=== PATIENT | female | born 1975 | race Caucasian/White ===

== ENCOUNTER → 2017-12-21 17:55 | Outpatient (CLI) | payer BC, SELFPAY ==
[2017-12-22 00:46] LABS: Group B Strep DNA By PCR Negative (Negative); Internal Control PASS; Probe Check PASS; Specimen Processing Control PASS
== END ==
PROVIDERS: Visit Provider Obstetrics & Gynecology
DX: O09.90 Supervision of high risk pregnancy, unspecified, unspecified trimester (principal); Z3A.00 Weeks of gestation of pregnancy not specified
CPT/HCPCS: 87081; 87653

== ENCOUNTER 2017-12-28 11:35 | Outpatient (CLI) | payer BC, SELFPAY ==
[2017-12-28 11:57] VITALS: BMI 22.6
--- NOTE | 2017-12-29 23:05 | OB.TRI.NOTE ---
- Problem List (1) Variable heart rate decelerations, antepartum Status: Acute History of Present Illness Reason For Visit: MONITORING History of Present Illness: variable in the office, sent down for extended monitoring Allergies No Known Allergies Allergy (Verified 12/28/17 11:59) - Pertinent Past Medical History Medical History: Past Medical History (Last Reviewed 12/28/17 @ 10:57 by Lanie Lim) History of anorexia nervosa Surgical History: Past Surgical History (Last Reviewed 12/28/17 @ 10:57 by Lanie Lim) H/O dilation and curettage NST - FHR Rate Baby A Baseline: 130-140 Variability:: Moderate Accelerations:: 15 x 15 Decelerations:: None NST Reactive:: Yes FHR Category:: Category I Uterine Activity:: no regular Impression/Plan reactive nst no decels, reassuring
== END 2017-12-28 13:05 | disposition home or self-care (01) ==
LOC: WPOUT 11:39 → WP 11:40
PROVIDERS: Visit Provider Obstetrics & Gynecology
DX: O76 Abnormality in fetal heart rate and rhythm complicating labor and delivery (principal); Z3A.00 Weeks of gestation of pregnancy not specified
CPT/HCPCS: 59025; 59050; 99218; G0378

== ENCOUNTER 2018-01-04 11:40 | Outpatient (CLI) | payer BC, SELFPAY ==
[2018-01-04 11:56] VITALS: BMI 21.8
--- NOTE | 2018-01-04 13:06 | US_ITS ---
STUDY: SECOND AND THIRD TRIMESTER OBSTETRICAL ULTRASOUND - LIMITED REASON FOR EXAM: Female, 42 years old. position and amniotic fluid index determination. LMP: January 15, 2018. PRIOR ULTRASOUND: None. TECHNIQUE: Transabdominal ultrasound evaluation was performed. FINDINGS: There is a single intrauterine fetus. The fetus is in a cephalic presentation. There is demonstrated cardiac activity with a heart rate of 119 bpm. There is a normal amniotic fluid volume. The largest amniotic fluid pocket measures 12.1 cm x 8.2 cm. The amniotic fluid index (JANA) is 33.07 cm. The placenta is anterior and low lying but not previa in location. There are Grade 2 placental changes. Age by LMP: 38 weeks, 3 days. YARITZA by LMP: January 15, 2018. US/OB Limited (No Biometrics) IMPRESSION: Amniotic fluid is normal. There is a cephalic presentation. Electronically Signed: Christoph Garvey MD at 15:05 EDT Tel [phone], Service support ,
--- NOTE | 2018-01-07 02:47 | OB.TRI.NOTE ---
History of Present Illness Date of Service: 01/04/18 Was patient seen by the physician?: Yes Reason For Visit: MONITORING Allergies No Known Allergies Allergy (Verified 01/04/18 11:03) - Pertinent Past Medical History Medical History: Past Medical History (Last Reviewed 01/04/18 @ 11:03 by Lanie Lim) History of anorexia nervosa Surgical History: Past Surgical History (Last Reviewed 01/04/18 @ 11:03 by Lanie Lim) H/O dilation and curettage NST - FHR Rate Baby A Baseline: 120 Variability:: Moderate Accelerations:: 15 x 15 Decelerations:: None NST Reactive:: Yes FHR Category:: Category I Uterine Activity:: irregular Impression/Plan reassuring FHT still poly on US. extended monitoring reassuring dc home kick counts
== END 2018-01-04 15:45 | disposition home or self-care (01) ==
LOC: WPOUT 11:54 → WP 11:55
PROVIDERS: Visit Provider Obstetrics & Gynecology
DX: Z34.90 Encounter for supervision of normal pregnancy, unspecified, unspecified trimester (principal)
CPT/HCPCS: 59025; 59050; 76815; 99218; G0378

== ENCOUNTER 2018-01-06 13:05 | Inpatient (IN) | payer BC, SELFPAY ==
[2018-01-06] MEDS: 0.9% Saline Lock 10 ML Syringe IV (13:30)
[2018-01-06 13:31] VITALS: BMI 21.6
[2018-01-06] MEDS: Oxytocin 30 units/NS 500 ml 30 UNITS/500 ML IV.SOLN 334 UNITS IV (13:40)
[2018-01-06] MEDS: Oxytocin 30 units/NS 500 ml 30 UNITS/500 ML IV.SOLN 167 UNITS IV (14:10)
[2018-01-06 14:14] LABS: Hematocrit 39.8 % (37-47); Hemoglobin 13.8 g/dl (12.0-15.0); Mean Corp Hgb Conc 34.7 g/gl (32-36); Mean Corpuscular Hgb 31.4 pg (27.0-32.0); Mean Corpuscular Volume 90.7 fL (81-99); Mean Platelet Vol. 10.3 fl (6.2-12.0); Platelet Count 190 K/mm3 (150-450); RBC Distribution Width CV 12.8 % (11.6-14.6); RBC Distribution Width SD 41.9 fl (35.1-43.9); Red Blood Count 4.39 M/mm3 (4.2-5.4); White Blood Count 8.2 K/mm3 (4.4-11.0)
[2018-01-06 14:15] LABS: Scan Indicated on CBC? Y/N NO
[2018-01-06 20:15] VITALS: BP 108/66; PULSE 64; RESP 16; TEMP 36.6; O2SAT 96
[2018-01-06 20:36] LABS: Bedside Glucose 97 mg/dL (70-110)
[2018-01-06] MEDS: Acetaminophen 325 MG Tablet PO (20:47)
--- NOTE | 2018-01-06 21:04 | PCM.HP.OB ---
History Date of Admission: 01/06/18 Final YARITZA: 01/15/18 Gestational age: 38 Weeks and 5 Days History of this : This is a 42 year-old, at 38 weeks gestational age presents and delivers precipitously Medical History: Medical History (Last Reviewed 01/04/18 @ 11:03 by Lanie Lim) History of anorexia nervosa Z86.59 Surgical History: Surgical History (Last Reviewed 01/04/18 @ 11:03 by Lanie Lim) H/O dilation and curettage Z98.890 Allergies No Known Allergies Allergy (Verified 01/04/18 11:03) Home Medications: Home Medications cholecalciferol (vitamin D3) 2,000 unit capsule 2,000 unit PO QDAY 12/01/17 vitamin,calcium,gtpheuyi-gbjg-seszd acid tablet 1 tab PO QDAY 12/01/17 Smoking Status: Former smoker Alcohol: None Number of Fetus(es): 1 Heart Tracin-130 History Past Pregnancies: Past Pregnancies Pregancy History 7 Elective abortions Hx Para 3 Spontaneous abortions Hx # Term Pregnancies Ectopic pregnancies Hx # Pregnancies Multiple births # of living children Past Pregnancies Del. Date Name GA/Weeks Outcome Route Bth Weight Gen Labor Lgth Anesthesia Del [facility] Provider FOB Unknown 2010 Puneet live - full term [place] Unknown 2012 Sebastian live - full term Delivered at Home in the bathroom Unknown 2014 [facility] live - full term Adriana Expected Infant Delivery Method: Spontaneous Vaginal Review of Systems Constitutional: Denies: Fever, Malaise Eyes: Denies: Blurred vision, Vision Change HEENT: Denies: Head Aches, Visual Changes Cardiovascular: Denies: Chest Pain, Palpitations Respiratory: Denies: Cough, Shortness of Breath, Wheezing Gastrointestinal: Denies: Abdominal Pain, Diarrhea, Nausea, Vomiting Genitourinary: Denies: Dysuria, Hematuria Musculoskeletal: Denies: Joint Pain, Muscle pain Skin: Denies: Lesions, Rash Neurological: Denies: Blurred vision, Focal weakness, Headaches Psychiatric: Denies: Anxiety, Depression Endocrine: Denies: Heat/ Cold Intolerance Hematologic/ Lymphatic: Denies: Easy Bruising, Easy Bleeding Physical Exam General: Alert, Cooperative, No apparent distress HEENT: Atraumatic, Normocephalic. Negative for: Thyromegaly, Lymphadenopathy Cardiovascular: Regular rate Lungs: Normal air movement Abdomen: Soft, Non Tender, Gravid Neurological: Deep Tendon Reflexes 2+/4 and Symmetrical, Neuro grossly intact. 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 Negative for: Vulvar lesions Estimated gestational size: Appropriate for gestational size Presentation: Cephalic Assessment/Plan All Active Problems (Last Reviewed 01/04/18 @ 11:03 by Lanie Lim) Variable heart rate decelerations, antepartum (Acute) AMA (advanced maternal age) multigravida 35+ (Acute) Supervision of high-risk (Acute) This is a 42 year-old, at 38 weeks gestational age with polyhydramnios and gdma1 precipitous delivery
--- NOTE | 2018-01-06 21:07 | HP.PCM_ITS ---
History Date of Admission: 01/06/18 Final YARITZA: 01/15/18 Gestational age: 38 Weeks and 5 Days History of this : This is a 42 year-old, at 38 weeks gestational age presents and delivers precipitously Medical History: Medical History (Last Reviewed 01/04/18 @ 11:03 by Lanie Lim) History of anorexia nervosa Z86.59 Surgical History: Surgical History (Last Reviewed 01/04/18 @ 11:03 by Lanie Lim) H/O dilation and curettage Z98.890 Allergies No Known Allergies Allergy (Verified 01/04/18 11:03) Home Medications: Home Medications cholecalciferol (vitamin D3) 2,000 unit capsule 2,000 unit PO QDAY 12/01/17 vitamin,calcium,cgqkwulv-jyet-pqrmb acid tablet 1 tab PO QDAY 12/01/17 Smoking Status: Former smoker Alcohol: None Number of Fetus(es): 1 Heart Tracin-130 History Past Pregnancies: Past Pregnancies Pregancy History 7 Elective abortions Hx Para 3 Spontaneous abortions Hx # Term Pregnancies Ectopic pregnancies Hx # Pregnancies Multiple births # of living children Past Pregnancies Del. Date Name GA/Weeks Outcome Route Bth Weight Gen Labor Lgth Anesthesia Del [facility] Provider FOB Unknown 2010 Puneet live - full term [place] Unknown 2012 Sebastian live - full term Delivered at Home in the bathroom Unknown 2014 [facility] live - full term Adriana Expected Infant Delivery Method: Spontaneous Vaginal Review of Systems Constitutional: Denies: Fever, Malaise Eyes: Denies: Blurred vision, Vision Change HEENT: Denies: Head Aches, Visual Changes Cardiovascular: Denies: Chest Pain, Palpitations Respiratory: Denies: Cough, Shortness of Breath, Wheezing Gastrointestinal: Denies: Abdominal Pain, Diarrhea, Nausea, Vomiting Genitourinary: Denies: Dysuria, Hematuria Musculoskeletal: Denies: Joint Pain, Muscle pain Skin: Denies: Lesions, Rash Neurological: Denies: Blurred vision, Focal weakness, Headaches Psychiatric: Denies: Anxiety, Depression Endocrine: Denies: Heat/ Cold Intolerance Hematologic/ Lymphatic: Denies: Easy Bruising, Easy Bleeding Physical Exam General: Alert, Cooperative, No apparent distress HEENT: Atraumatic, Normocephalic. Negative for: Thyromegaly, Lymphadenopathy Cardiovascular: Regular rate Lungs: Normal air movement Abdomen: Soft, Non Tender, Gravid Neurological: Deep Tendon Reflexes 2+/4 and Symmetrical, Neuro grossly intact. 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 Negative for: Vulvar lesions Estimated gestational size: Appropriate for gestational size Presentation: Cephalic Assessment/Plan All Active Problems (Last Reviewed 01/04/18 @ 11:03 by Lanie Lim) Variable heart rate decelerations, antepartum (Acute) AMA (advanced maternal age) multigravida 35+ (Acute) Supervision of high-risk (Acute) This is a 42 year-old, at 38 weeks gestational age with polyhydramnios and gdma1 precipitous delivery
[2018-01-07 00:45] VITALS: BP 103/64; PULSE 63; RESP 18; TEMP 36.8; O2SAT 94
--- NOTE | 2018-01-07 02:24 | OP.PCM_ITS ---
- Problem List (1) Precipitous delivery Status: Acute (2) Variable heart rate decelerations, antepartum Status: Acute (3) AMA (advanced maternal age) multigravida 35+ Status: Acute Qualifiers: Trimester: third trimester Qualified Code(s): O09.523 - Supervision of elderly multigravida, third trimester Comment: growth us 3rd trimester and weekly nst 36 weeks on, normal NIPT screening Serial growth US every 4 weeks, antnenatal testing weekly and daily kick counts (4) Supervision of high-risk Status: Acute Qualifiers: Trimester: third trimester Qualified Code(s): O09.93 - Supervision of high risk , unspecified, third trimester Comment: PRR PC Sebastian Teixeira Cambriana Danny ROLY [facility] Vaginal Delivery Maternal Presentation: Active Labor 42-year-old presented at 38 weeks 5 days and delivered precipitously Amniotic Membrane Rupture Type: Spontaneous at home Amniotic Fluid Description: Clear Final YARITZA: 01/15/18 Gestational age: 38 Weeks and 6 Days Date of Procedure: 01/06/18 Pre-Operative Diagnosis: In active labor precipitous delivery Post-Operative Diagnosis: same Surgery/ Procedure Performed: Spontaneous Vaginal Delivery Type of Anesthesia: None Description of Procedure: Patient presented to labor and delivery and was checked by a nurse and was felt to only be 1-2 cm but was difficult to find the cervix. Patient went to the restroom and while she was in the restroom she felt the head starting to crown and therefore she was carried back into the bed by staff and her . At this time the head was and Dr. Pérez was nearby and called into the room due to her being on the floor and Dr. Parks had not been informed of her arrival or status yet. The head had delivered spontaneously and there was a very tight nuchal cord preventing delivery of the shoulders therefore it was clamped cut on the perineum and the anterior and posterior shoulders were delivered without complication per physician and nursing staff present. I arrived in the baby was being examined by pediatric health support specialist and I took over the patient's care and the placenta delivered spontaneously immediately following was noted to be intact and have a three-vessel cord. No lacerations were noted. EBL was 300 cc and the infant tolerated the delivery well Placental Delivery Description: Spontaneous Placenta Disposition: [facility] Cord Entanglement: Around neck x 1, tight Estimated Blood Loss: 200 A gender: Male Episiotomy Description: None Laceration: None Medications given after delivery: IV Pitocin Complications: None
[2018-01-07 04:45] VITALS: BP 114/78; PULSE 63; RESP 16; TEMP 36.6; O2SAT 97
[2018-01-07] MEDS: Acetaminophen 325 MG Tablet PO (05:54)
[2018-01-07 06:05] LABS: Bedside Glucose 79 mg/dL (70-110)
--- NOTE | 2018-01-07 08:15 | PCM.PN.OB ---
Patient Problems: Active and Suspected Problems (Last Reviewed 01/04/18 @ 11:03 by Lanie Lim) Precipitous delivery (Acute) Subjective: NO CP, SOB, nausea. Ambulating, voiding. Doing well. - Physical Exam General: Alert, Oriented x3 Abdomen: Soft, Non Tender, - - FF below U Vital Signs Temp Pulse Resp BP Pulse Ox 97.9 F 63 16 114/78 97 01/07/18 04:45 01/07/18 04:45 01/07/18 04:45 01/07/18 04:45 01/07/18 04:45 Oxygen Delivery Method Room Air Weight: 130 lb 2 oz Body Mass Index (BMI) 21.6 Intake and Output for Last 24 Hours 01/05/18 01/06/18 01/07/18 23:59 23:59 23:59 Output Total 200 / 200 Balance -200 / -200 Laboratory Tests Past 24 Hrs 01/06/18 01/06/18 13:30 13:30 WBC 8.2 RBC 4.39 Hgb 13.8 Hct 39.8 MCV 90.7 MCH 31.4 MCHC 34.7 RDW 12.8 RDW Differential 41.9 Plt Count 190 MPV 10.3 Blood Type O POSITIVE Antibody Screen NEGATIVE POC Glucose 01/07/18 01/06/18 06:00 20:06 POC Glucose 79 97 Medical Necessity - Tobacco Use Smoking Status: Former smoker Assessment/Plan All Active Problems (Last Reviewed 01/04/18 @ 11:03 by Lanie Lim) Variable heart rate decelerations, antepartum (Acute) Precipitous delivery (Acute) AMA (advanced maternal age) multigravida 35+ (Acute) Supervision of high-risk (Acute) PPD #1: Routine care, doing well, . Possibly home today.
[2018-01-07 08:30] VITALS: BP 103/74; PULSE 67; RESP 18; TEMP 36.7; O2SAT 97
[2018-01-07 12:30] VITALS: BP 101/65; PULSE 71; RESP 18; TEMP 37; O2SAT 97
[2018-01-07 15:30] VITALS: BP 98/62; PULSE 63; RESP 18; TEMP 36.8; O2SAT 96
[2018-01-07] MEDS: Ibuprofen 600 MG Tablet PO (15:34)
[2018-01-07 20:10] VITALS: BP 99/68; PULSE 84; RESP 16; TEMP 36.9
[2018-01-08 02:00] VITALS: BP 101/65; PULSE 78; RESP 18; TEMP 36.2
[2018-01-08] MEDS: Ibuprofen 600 MG Tablet PO (02:35)
[2018-01-08 08:00] VITALS: BP 120/80; PULSE 86; RESP 18; TEMP 36.6
--- NOTE | 2018-01-08 08:47 | PCM.DCVAG ---
Discharge Diet: No Restrictions Discharge Activity: Return to Normal Activity, May not drive while taking narcotic pain medications., May Shower May resume sexual activity in: 4-6 weeks Call your doctor if your incision/area has: Continuous Slow Oozing, Sudden Increased Bleeding, Increased Pain/ Swelling, Increased Redness, Foul Smelling Discharge Additional Instructions: If you experience any of the following, contact your healthcare provider. Bleeding that soaks a pad every hour for 2 hours Fever 100.4 or higher Unrelieved incision or abdominal pain Swelling, redness, discharge or bleeding from your incision or episiotomy site Your incision begins to separate Problems urinating (including inability to urinate or burning while urinating). Visual changes Severe headache Flu-like symptoms Pain or redness in one of both of your breasts Pain, warmth, tenderness or swelling in your legs, especially the calf area Frequent nausea and vomiting Symptoms of depression or anxiety If you experience any of the following, call 911 or go to the nearest Emergency Room. Chest pain Problems breathing Seizure activity Partial or complete paralysis of a body part, slurred speech, weakness or drooping of the face, or a sudden inability to walk or hold your balance Allergies/Adverse Reactions: Allergies No Known Allergies Allergy (Verified 01/04/18 11:03) Medications to take at Discharge cholecalciferol (vitamin D3) 2,000 unit capsule 2,000 unit PO QDAY 12/01/17 vitamin,calcium,ozaznehc-ocli-nbnaw acid tablet 1 tab PO QDAY 12/01/17 Please Follow Up With: Almita Parks MD - [phone] When: Call to make an appointment with your doctor in 6 weeks. If you had elevated Blood pressure or 4th degree laceration you will need to be seen in 2 weeks. Primary Care Physician: Care Physician,No Primary [Primary Care Provider] -
--- NOTE | 2018-01-08 08:48 | DCINST_ITS ---
Discharge Diet: No Restrictions Discharge Activity: Return to Normal Activity, May not drive while taking narcotic pain medications., May Shower May resume sexual activity in: 4-6 weeks Call your doctor if your incision/area has: Continuous Slow Oozing, Sudden Increased Bleeding, Increased Pain/ Swelling, Increased Redness, Foul Smelling Discharge Additional Instructions: If you experience any of the following, contact your healthcare provider. * Bleeding that soaks a pad every hour for 2 hours * Fever 100.4 or higher * Unrelieved incision or abdominal pain * Swelling, redness, discharge or bleeding from your incision or episiotomy site * Your incision begins to separate * Problems urinating (including inability to urinate or burning while urinating) . * Visual changes * Severe headache * Flu-like symptoms * Pain or redness in one of both of your breasts * Pain, warmth, tenderness or swelling in your legs, especially the calf area * Frequent nausea and vomiting * Symptoms of depression or anxiety If you experience any of the following, call 911 or go to the nearest Emergency Room. * Chest pain * Problems breathing * Seizure activity * Partial or complete paralysis of a body part, slurred speech, weakness or drooping of the face, or a sudden inability to walk or hold your balance Allergies/Adverse Reactions: Allergies No Known Allergies Allergy (Verified 01/04/18 11:03) Medications to take at Discharge cholecalciferol (vitamin D3) 2,000 unit capsule 2,000 unit PO QDAY 12/01/17 vitamin,calcium,zkxuxsrc-zucr-noyzt acid tablet 1 tab PO QDAY 12/01/17 Please Follow Up With: Almita Parks MD - [phone] When: Call to make an appointment with your doctor in 6 weeks. If you had elevated Blood pressure or 4th degree laceration you will need to be seen in 2 weeks. Primary Care Physician: Care Physician,No Primary [Primary Care Provider] -
[2018-01-08 10:00] VITALS: BP 120/80; PULSE 86; RESP 18; TEMP 36.6
== END 2018-01-08 09:05 | disposition home or self-care (01) | DRG 775 ==
PROVIDERS: Admitting Provider Obstetrics & Gynecology; Visit Provider Obstetrics & Gynecology
DX: O62.3 Precipitate labor (principal); Z37.0 Single live birth; O69.1XX0 Labor and delivery complicated by cord around neck, with compression, not applicable or unspecified; O40.3XX0 Polyhydramnios, third trimester, not applicable or unspecified; Z86.59 Personal history of other mental and behavioral disorders; Z87.891 Personal history of nicotine dependence; Z3A.38 38 weeks gestation of pregnancy
CPT/HCPCS: 59050; 82962; 85027; 86850; 86900; 99218; A4216; G0378

== ENCOUNTER → 2022-07-16 | Outpatient (CLI) | payer OTHER, SELFPAY ==
--- NOTE | 2022-07-16 13:50 | BI_ITS ---
MAMMOGRAPHY - BILATERAL SCREENING REASON FOR EXAM: Female, 46 years old. Routine annual screening examination. PERTINENT HISTORY: Non-contributory. TECHNIQUE: Digital bilateral breast tyrone (3D mammographic acquisition) in the CC and MLO projections. 2-D mediolateral oblique (MLO) and craniocaudad (CC) views of both breasts were obtained. CAD: Full Field Digital Mammography with Computer Added Detection was performed. COMPARISON: None. Baseline examination. FINDINGS: Breast Composition: The breasts are extremely dense, which lowers the sensitivity of mammography. There are no dominant masses or suspicious calcifications. No other significant abnormalities are identified. BI/SCRN MAMM (CAD)W/TYRONE BILAT IMPRESSION: Negative screening mammogram. Yearly followup mammogram recommended. (A) ASSESSMENT CATEGORY: BIRADS Category 1: Negative. A letter regarding these results will be sent to the patient by the facility within 30 days. Approximately 10% of breast cancers are not detected by mammography. A normal mammogram should not delay biopsy of a clinically suspicious abnormality. [id number] Electronically Signed: Christoph Garvey MD at 14:33 EST ,
[2022-07-22 15:57] LABS: HPV APTIMA, High Risk Negative (Negative)
== END | disposition home or self-care (01) ==
PROVIDERS: Visit Provider Obstetrics & Gynecology
DX: Z12.31 Encounter for screening mammogram for malignant neoplasm of breast (principal); Z12.4 Encounter for screening for malignant neoplasm of cervix
CPT/HCPCS: 77063; 77067; 87624; 88175; G0145

== ENCOUNTER → 2023-06-01 | Outpatient (CLI) | payer OTHER, SELFPAY ==
[2023-06-01 15:32] LABS: Absolute Lymphocyte Count 1.93 X10^3/uL (0.83-4.51); Absolute Neutrophil Count 5.1 X10^3/uL (2.0-7.7); Basophil# 0.07 X10^3/uL; Basophil% 0.9 % (0-1); Eosinophil# 0.09 X10^3/uL; Eosinophils% 1.2 % (0-5); Hematocrit 40.2 % (37-47); Hemoglobin 13.1 g/dL (12.0-15.0); Lymphocyte # 1.93 X10^3/ul (0.83-4.51); Lymphocyte % 25.3 % (19-41); Mean Corp Hgb Conc 32.6 g/dL (32-36); Mean Corpuscular Hgb 30.7 pg (27.0-32.0); Mean Corpuscular Volume 94.1 fL (81-99); Mean Platelet Vol. 10.6 fl (6.2-12.0); Monocyte# 0.37 X10^3/uL; Monocyte% 4.8 % (0-10); NRBC Flagged by Analyzer 0 % (0-5); Neutrophil # 5.14 X10^3/uL (2.7-7.7); Neutrophil % 67.4 % (47-70); Platelet Count 203 K/mm3 (150-450); RBC Distribution Width CV 12.9 % (11.6-14.6); RBC Distribution Width SD 44.6 fl (35.1-43.9); Red Blood Count 4.27 M/mm3 (4.2-5.4); White Blood Count 7.6 K/mm3 (4.4-11.0)
[2023-06-01 16:30] LABS: Thyroid Stim Hormone (TSH) 1.45 uIU/mL (0.358-3.74)
== END | disposition home or self-care (01) ==
PROVIDERS: Referring Provider Nurse Practitioner Women's Health; Visit Provider Nurse Practitioner Women's Health
DX: Z13.29 Encounter for screening for other suspected endocrine disorder (principal); N92.1 Excessive and frequent menstruation with irregular cycle
CPT/HCPCS: 36415; 84443; 85025

== ENCOUNTER → 2023-06-11 | Outpatient (CLI) | payer OTHER, SELFPAY ==
--- NOTE | 2023-06-11 08:02 | US_ITS ---
STUDY: ULTRASOUND OF THE FEMALE PELVIS - COMPLETE REASON FOR EXAM: Female, 47 years old. Bleeding LMP: June 05, 2023. TECHNIQUE: Transabdominal and Transvaginal TECHNICAL QUALITY: Adequate. COMPARISON: None. FINDINGS: The uterus is anteflexed and is tilted to the left side of the pelvis. The uterus measures 8.8 cm x 6.2 cm x 5.6 cm. Normal uterine cervix. The endometrium measures 6 mm in thickness, and is hyperechoic. There is no demonstrated endometrial mass. There is no demonstrated myometrial mass. I.U.D. - The patient does not have an I.U.D. The right ovary is visualized. The right ovary measures 2 cm x 2.7 x 1.4 cm. Follicles are seen within the ovary. There is no visualized right adnexal mass or complex lesion. There is normal arterial and normal venous vascularity. The left ovary is visualized. The left ovary measures 1.2 cm x 1.4 cm x 1.1 cm. There is no left ovarian cyst or ovarian mass. There is no visualized left adnexal mass or complex lesion. There is normal arterial and normal venous vascularity. There is no fluid in the cul-de-sac. The pre void volume of the bladder was 493 ml. US/Pelvic (Non ) IMPRESSION: Follicles are seen in the right ovary. Electronically Signed: Christoph Garvey MD at 14:43 EST ,
== END | disposition home or self-care (01) ==
PROVIDERS: Visit Provider Nurse Practitioner Women's Health
DX: N92.1 Excessive and frequent menstruation with irregular cycle (principal)
CPT/HCPCS: 76830; 76856